=== PATIENT | female | born 1960 | race Hispanic/Latino ===

== ENCOUNTER 2021-03-05 08:34 | Outpatient (CLI) | payer OTHER ==
--- NOTE | 2021-03-05 11:13 | Magnetic Resonance Report ---
Bilateral breast MRI with and without contrast. History: FAMILY HISTORY OF BREAST CA Z80.3 Procedure: Axial T1 and T2-weighted fat-sat images were obtained precontrast. 14 cc Clariscan was in jected intravenously and serial axial T1-weighted images with fat saturation were obtained postcontra st. 3-D MIP projections, Kinetic analysis and subtraction imaging was utilized to evaluate. A [employer] ed 8 channel breast coil was utilized for image acquisition. Comparison: None Findings: Background level of enhancement is minimal. No suspicious axillary or clavicular nodes are identified. No abnormal bone marrow signal is seen. No significant chest wall enhancement is noted. Right breast: No suspicious lesions are seen. Left breast: In the outer lower mid depth of the left breast a tiny reniform enhancing nodule is thou ght to be a tiny intramammary node. In the 2:00 position of the mid to posterior depth of the left br east, roughly 11 cm from the nipple, 3.3 cm from the chest wall, and 1 cm from the lateral skin surfa ce, a 6 mm complex of 3 tightly grouped enhancing foci is seen with washout on kinetic profile. These show moderate signal on T1-weighted imaging and increased signal on T2-weighted imaging. No other le sions are seen. Impression: Probably benign enhancing group of tiny nodules versus a lymph node is seen in the upper outer left breast. I have no other imaging for comparison. I would suggest targeted mammography and u ltrasound in further evaluation. BIRADS: 0: Incomplete - needs additional imaging evaluation Signer Name: Juarez Mayfield MD Signed: 03/05/2021 11:08 AM Workstation Name: [id number]
== END 2021-03-05 08:35 | disposition home or self-care (01) ==
LOC: SPVIMAG 08:34
PROVIDERS: ATTEND Surgery
DX: Z03.89 Encounter for observation for other suspected diseases and conditions ruled out (principal); Z80.9 Family history of malignant neoplasm, unspecified
CPT/HCPCS: A9575; C8908; 77049

== ENCOUNTER 2021-04-03 15:17 | Outpatient (CLI) | payer OTHER | END 2021-04-03 15:18 | disposition home or self-care (01) | LOC: SPVWC 15:17 | DX: R92.8 Other abnormal and inconclusive findings on diagnostic imaging of breast (principal); R59.0 Localized enlarged lymph nodes ==